=== PATIENT | male | born 1950 | race Caucasian/White ===

== ENCOUNTER 2022-01-05 17:38 | Emergency (ER) | payer MEDICARE, MEDICAID ==
[~2022-01-05] VITALS: Ht 167.6 cm; Wt 65.9 kg
[2022-01-05 17:42] VITALS: BP 128/81
[2022-01-05 17:56] LABS: CLARITY,URINE CLOUDY (Clear); COLOR,URINE YELLOW (Yellow); GLUCOSE, URINE NEGATIVE (Neg); KETONES,URINE 15 mg/dl (Neg); LEUKOCYTE ESTERASE ,URINE SMALL (Neg); NITRITES, URINE NEGATIVE (Neg); OCCULT BLOOD,URINE TRACE-INTACT (Neg); PH,URINE 8.5 (4.8-8.0); PROTEIN,URINE 100 mg/dl (Neg); UROBILINOGEN,URINE 0.2 E.U/dL (0.2-1.0)
[2022-01-05 18:06] LABS: UA COLLECTION TYPE FOLEY CATH
[2022-01-05 18:08] LABS: WBC,URINE 50-100 /HPF (0-4)
[2022-01-05 18:09] LABS: AMORPHOUS PHOSPHATES 3+; BACTERIA,URINE 2+ /HPF (Neg); SQUAMOUS EPITHELIAL CELL,UR FEW /LPF (FEW); WBC CLUMPS,URINE MODERATE /HPF (NEGATIVE)
== END 2022-01-05 20:26 | disposition home or self-care (01) ==
LOC: ER 17:38
DX: T83.031A Leakage of indwelling urethral catheter, initial encounter (principal); Y84.6 Urinary catheterization as the cause of abnormal reaction of the patient, or of later complication, without mention of misadventure at the time of the procedure
CPT/HCPCS: 81001; 87077; 87088; 87186; 99283

== ENCOUNTER 2022-01-06 07:53 | Emergency (ER) | payer MEDICARE, MEDICAID ==
[~2022-01-06] VITALS: Ht 167.6 cm; Wt 64.0 kg
[2022-01-06 08:04] VITALS: BP 133/88
[2022-01-07] MEDS ORDERED: NO HOME MEDS (03:46)
== END 2022-01-06 08:41 | disposition home or self-care (01) ==
LOC: ER 07:54
DX: T85.9XXA Unspecified complication of internal prosthetic device, implant and graft, initial encounter (principal); Z59.00 Homelessness unspecified; Z79.899 Other long term (current) drug therapy
CPT/HCPCS: 99281

== ENCOUNTER 2022-01-07 00:13 | Inpatient (IN) | payer MEDICARE, MEDICAID ==
[~2022-01-07] VITALS: Ht 167.6 cm; Wt 63.6 kg
[2022-01-07] MEDS ORDERED: LIDOcaine 2% 10ml TOPICAL JELLY (Urojet) TP ONE (00:20)
[2022-01-07 02:01] LABS: BASOPHILS % (AUTO) 0.7 % (0-1); EOSINOPHILS # (AUTO) 0.1 X10'3 (0-0.9); EOSINOPHILS % (AUTO) 1.3 % (0-6); HEMATOCRIT 37.1 % (42.0-52.0); HEMOGLOBIN 12.5 g/dl (14.0-17.9); LYMPHOCYTES # (AUTO) 1.5 X10'3 (1.1-4.8); LYMPHOCYTES % (AUTO) 20.6 % (21-51); MEAN CORPUSCULAR HEMOGLOBIN 30.6 PG (27.0-31.0); MEAN CORPUSCULAR HGB CONC 33.5 g/dL (33.0-36.5); MEAN CORPUSCULAR VOLUME 91.1 FL (78-98); MEAN PLATELET VOLUME 7.8 FL (7.4-10.4); MONOCYTES # (AUTO) 1.1 X10'3 (0-0.9); MONOCYTES % (AUTO) 14.9 % (2-12); NEUTROPHILS # (AUTO) 4.4 X10'3 (1.8-7.7); NEUTROPHILS % (AUTO) 62.5 % (42-75); PLATELET COUNT 327 X10'3 (140-440); RED BLOOD COUNT 4.08 X10'6 (4.70-6.10); RED CELL DISTRIBUTION WIDTH 14.9 % (11.5-14.5); WHITE BLOOD COUNT 7.1 X10'3 (4.5-11.0)
[2022-01-07 02:15] LABS: ALANINE AMINOTRANSFERASE 14 U/L (12-78); ALBUMIN 3.3 G/DL (3.4-5.0); ALKALINE PHOSPHATASE 67 IU/L (46-116); ANION GAP 13 (8-16); ASPARTATE AMINO TRANSFERASE 21 U/L (10-37); BILIRUBIN,TOTAL 0.5 MG/DL (0.1-1.0); BLOOD UREA NITROGEN 23 MG/DL (7-18); BUN/CREATININE RATIO 18.1 (5.4-32.0); CALCIUM 8.8 MG/DL (8.5-10.1); CHLORIDE 109 MMOL/L (99-107); CREATININE 1.27 MG/DL (0.60-1.10); GLUCOSE 111 MG/DL (70-104); POTASSIUM 3.5 MMOL/L (3.5-5.1); SODIUM 144 MMOL/L (135-145); TOTAL CARBON DIOXIDE 22.1 MMOL/L (24-32); TOTAL PROTEIN 6.7 G/DL (6.4-8.2); eGFR 56 ML/MIN
[2022-01-07 02:29] LABS: ETHANOL < 0.010 GM/DL (0.0-0.010)
[2022-01-07 02:55] LABS: URINE AMPHETAMINE SCREEN NEGATIVE (Neg); URINE BARBITUATE SCREEN NEGATIVE (Neg); URINE BENZODIAZEPINES SCREEN NEGATIVE (Neg); URINE CANNABINOID SCREEN NEGATIVE (Neg); URINE COCAINE SCREEN NEGATIVE (Neg); URINE METHADONE SCREEN NEGATIVE (Neg); URINE OPIATE SCREEN NEGATIVE (Neg); URINE PHENCYCLIDINE SCREEN NEGATIVE (Neg)
[2022-01-07 03:09] LABS: CLARITY,URINE CLOUDY (Clear); COLOR,URINE YELLOW (Yellow); GLUCOSE, URINE NEGATIVE (Neg); KETONES,URINE 40 mg/dl (Neg); LEUKOCYTE ESTERASE ,URINE MODERATE (Neg); NITRITES, URINE NEGATIVE (Neg); OCCULT BLOOD,URINE TRACE-INTACT (Neg); PROTEIN,URINE 100 mg/dl (Neg)
[2022-01-07 03:26] LABS: WBC,URINE TNTC /HPF (0-4)
[2022-01-07 03:27] LABS: BACTERIA,URINE 4+ /HPF (Neg)
[2022-01-07 03:28] LABS: AMORPHOUS PHOSPHATES 4+; SQUAMOUS EPITHELIAL CELL,UR FEW /LPF (FEW); WBC CLUMPS,URINE FEW /HPF (NEGATIVE)
[2022-01-07 03:29] LABS: TRIPLE PHOSPHATE CRYST 4+ /HPF (NEGATIVE)
[2022-01-07 03:36] LABS: UA COLLECTION TYPE CLN CATCH MIDSTREAM
[2022-01-07] MEDS ORDERED: cefTRIAXone 1g/NS 100ml IVPB 100 ML IV ONE (03:40)
[2022-01-07] MEDS ORDERED: NO HOME MEDS (03:46)
[2022-01-07] MEDS ORDERED: magnesium Cl slow-release 64mg tablet PO PRN (03:55)
[2022-01-07] MEDS ORDERED: ondansetron/PF 4mg/2ml inj IV PRN (03:55)
[2022-01-07] MEDS ORDERED: magnesium 4gm in 100ml NS 100 ML IV PRN (03:55)
[2022-01-07] MEDS ORDERED: acetaminophen 325mg tablet PO PRN (03:55)
[2022-01-07] MEDS ORDERED: magnesium 2GM in 50ml NS 50 ML IV PRN (03:55)
[2022-01-07] MEDS ORDERED: POTASSIUM BICARB 20meq eff tab 20 MEQ TABLET.EFF PO PRN (03:55)
[2022-01-07] MEDS ORDERED: mag hydrox/Alum hydrox/simeth 30ml oral suspension PO PRN (03:55)
[2022-01-07] MEDS ORDERED: HYDROcodone/acetaminophen 5mg/325mg tablet PO PRN (03:55)
[2022-01-07] MEDS ORDERED: magnesium hydroxide 30ml (MOM) UD suspension PO PRN (03:55)
[2022-01-07] MEDS ORDERED: potassium CL 10mEq/100ml bag 100 ML IV PRN (03:55)
[2022-01-07 04:10] LABS: MAGNESIUM 1.7 MG/DL (1.5-2.4)
[2022-01-07 04:15] LABS: HEMOGLOBIN A1C 5.6 % (4.5-6.2)
[2022-01-07] MEDS: normal saline 1000ml 1,000 ML IV SCH ×2 (05:39→15:57)
[2022-01-07] MEDS: K and/or MAG REPLACEMENT MC SCH ×2 (08:00→20:00)
[2022-01-07] MEDS: docusate sod 100mg capsule PO SCH ×2 (08:31→19:44)
[2022-01-07] MEDS: enoxaparin 40mg/0.4ml syringe SUBCUT SCH (08:32)
--- NOTE | 2022-01-07 11:54 | NUR ---
pt ex at bedside. #[phone] jeff. Pt social service [phone] given her number
--- NOTE | 2022-01-07 12:42 | NUR ---
EX- AT BEDSIDE, FABRICATION WELDER AT BEDSIDE TO EVALUATE PT, PT'S SISTER WILL BE COMING INT TO TOWN TO SET UP CARE FOR PT OUTSIDE OF HOSPITAL.
[2022-01-07 15:35] VITALS: BP 137/75
[2022-01-07 18:00] VITALS: BP 135/71
--- NOTE | 2022-01-07 18:29 | NUR ---
Problems reprioritized. Patient report given, questions answered & plan of care reviewed with LUCY AYALA RN.
--- NOTE | 2022-01-07 18:30 | NUR ---
Patient in room ORTHO 4021. I have received report from PAOLA SCHMID and had the opportunity to ask questions and assume patient care.
[2022-01-07 22:00] VITALS: BP 117/53
[2022-01-08] MEDS: normal saline 1000ml 1,000 ML IV SCH ×2 (00:50→11:10)
--- NOTE | 2022-01-08 06:18 | NUR ---
Problems reprioritized. Patient report given, questions answered & plan of care reviewed with TALITA SCHMID.
[2022-01-08 06:30] VITALS: BP 165/91
[2022-01-08] MEDS: docusate sod 100mg capsule PO SCH ×3 (06:48→20:00)
[2022-01-08] MEDS: HYDROcodone/acetaminophen 10/325mg tab PO PRN (06:49)
[2022-01-08] MEDS: enoxaparin 40mg/0.4ml syringe SUBCUT SCH (06:55)
[2022-01-08 07:37] LABS: BASOPHILS # (AUTO) 0.1 X10'3 (0-0.2); BASOPHILS % (AUTO) 1.2 % (0-1); EOSINOPHILS # (AUTO) 0.2 X10'3 (0-0.9); EOSINOPHILS % (AUTO) 4.3 % (0-6); HEMATOCRIT 34.5 % (42.0-52.0); HEMOGLOBIN 11.6 g/dl (14.0-17.9); LYMPHOCYTES # (AUTO) 1.5 X10'3 (1.1-4.8); LYMPHOCYTES % (AUTO) 28.4 % (21-51); MEAN CORPUSCULAR HEMOGLOBIN 30.4 PG (27.0-31.0); MEAN CORPUSCULAR HGB CONC 33.5 g/dL (33.0-36.5); MEAN CORPUSCULAR VOLUME 90.9 FL (78-98); MEAN PLATELET VOLUME 7.6 FL (7.4-10.4); MONOCYTES # (AUTO) 0.7 X10'3 (0-0.9); MONOCYTES % (AUTO) 12.9 % (2-12); NEUTROPHILS # (AUTO) 2.7 X10'3 (1.8-7.7); NEUTROPHILS % (AUTO) 53.2 % (42-75); PLATELET COUNT 263 X10'3 (140-440); RED CELL DISTRIBUTION WIDTH 14.8 % (11.5-14.5); WHITE BLOOD COUNT 5.1 X10'3 (4.5-11.0)
[2022-01-08] MEDS ORDERED: cefTRIAXone 1g/NS 100ml IVPB 100 ML IV SCH (08:00)
[2022-01-08] MEDS: K and/or MAG REPLACEMENT MC SCH ×2 (08:00→20:00)
[2022-01-08 08:08] LABS: ALANINE AMINOTRANSFERASE 15 U/L (12-78); ALBUMIN 2.7 G/DL (3.4-5.0); ALBUMIN/GLOBULIN RATIO 0.9 (1.1-1.5); ALKALINE PHOSPHATASE 55 IU/L (46-116); ANION GAP 10 (8-16); ASPARTATE AMINO TRANSFERASE 19 U/L (10-37); BILIRUBIN,TOTAL 0.4 MG/DL (0.1-1.0); BLOOD UREA NITROGEN 22 MG/DL (7-18); BUN/CREATININE RATIO 19.5 (5.4-32.0); CALCIUM 7.5 MG/DL (8.5-10.1); CHLORIDE 114 MMOL/L (99-107); CHOLESTEROL 174 MG/DL (0-200); CREATININE 1.13 MG/DL (0.60-1.10); FERRITIN 185 NG/ML (26-388); GLUCOSE 92 MG/DL (70-104); HDL CHOLESTEROL 43 MG/DL (35-60); LDL CHOLESTEROL 94 MG/DL (50-100); POTASSIUM 3.8 MMOL/L (3.5-5.1); SODIUM 148 MMOL/L (135-145); TOTAL CARBON DIOXIDE 23.8 MMOL/L (24-32); TOTAL PROTEIN 5.7 G/DL (6.4-8.2); TRIGLYCERIDES 155 MG/DL (20-135); eGFR 64 ML/MIN
[2022-01-08] MEDS ORDERED: OLANZapine **IM** 10 mg inj. IM ONE ×2 (08:10→14:00)
[2022-01-08] MEDS ORDERED: LORazepam 1 MG tablet PO PRN (08:10)
[2022-01-08] MEDS ORDERED: LORazepam 2 mg/ml vial IV PRN (08:10)
[2022-01-08 08:16] LABS: % IRON SATURATION 44 % (11-46); IRON 85 UG/DL (53-167); TOTAL IRON BINDING CAPACITY 195 UG/DL (259-388)
[2022-01-08] MEDS ORDERED: TRAM50TA2 PO (08:28)
[2022-01-08] MEDS ORDERED: LOSA25TA96 PO (08:28)
[2022-01-08] MEDS ORDERED: CHOL400T57 PO (08:28)
[2022-01-08] MEDS ORDERED: DIVA-81 PO (08:28)
[2022-01-08] MEDS ORDERED: FLO0.4C PO (08:29)
[2022-01-08] MEDS ORDERED: FINA5TAB11 PO (08:29)
[2022-01-08 10:00] VITALS: BP 155/82
[2022-01-08 14:44] VITALS: BP 155/82
--- NOTE | 2022-01-08 14:55 | NUR ---
Patient very anxious pacing room, dragging watkins catheter around, attempting to come out of room. now at bedside patient has settled into bed comfortably with her there.
[2022-01-08] MEDS ORDERED: traMADol 50MG tablet PO PRN (15:35)
[2022-01-08 15:50] VITALS: BP 165/83
[2022-01-08] MEDS ORDERED: LORazepam 2 mg/ml vial IM PRN (17:00)
[2022-01-08] MEDS: levoFLOXACIN 500mg tablet PO SCH (17:07)
--- NOTE | 2022-01-08 17:20 | NUR ---
PAGER ID: [phone] MESSAGE: [id number] Megan Obrien: Can Ativan be IM instead of IV? he is being combative and wont take PO yon [id number]
--- NOTE | 2022-01-08 17:39 | NUR ---
Patient very agitated and unstable on his feet. Attempted to get him back to bed as he was hitting and screaming at staff. Security called, and assisted with getting him back to bed. Spoke to MD and received orders
--- NOTE | 2022-01-08 18:16 | NUR ---
Problems reprioritized. Patient report given, questions answered & plan of care reviewed with SHARMAINE Biggs.
--- NOTE | 2022-01-08 18:25 | NUR ---
Problems reprioritized. Patient report given, questions answered & plan of care reviewed with SHARMAINE Biggs.
--- NOTE | 2022-01-08 18:30 | NUR ---
Patient in room ORTHO 4021. I have received report from TALITA SCHMID and had the opportunity to ask questions and assume patient care.
[2022-01-08] MEDS: divalproex sod 250mg ER (24-hour) tablet PO SCH ×2 (19:52→20:00)
--- NOTE | 2022-01-08 21:00 | NUR ---
PATIENT REFUSED TO TAKE HIS HS MEDICINES EVEN AFTER SEVERAL ATTEMPTS WITH EXPLANATIONS, PATIENT CONFUSED, RESTLESS, AGITATED, COMBATIVE AND IMPULSIVE.
[2022-01-08 22:00] VITALS: BP 138/93
[2022-01-09 02:00] VITALS: BP 120/65
[2022-01-09 06:12] LABS: BASOPHILS # (AUTO) 0.1 X10'3 (0-0.2); BASOPHILS % (AUTO) 1.3 % (0-1); EOSINOPHILS # (AUTO) 0.3 X10'3 (0-0.9); EOSINOPHILS % (AUTO) 4.7 % (0-6); HEMATOCRIT 37.9 % (42.0-52.0); HEMOGLOBIN 12.7 g/dl (14.0-17.9); LYMPHOCYTES # (AUTO) 1.6 X10'3 (1.1-4.8); LYMPHOCYTES % (AUTO) 24.2 % (21-51); MEAN CORPUSCULAR HEMOGLOBIN 30.7 PG (27.0-31.0); MEAN CORPUSCULAR HGB CONC 33.6 g/dL (33.0-36.5); MEAN CORPUSCULAR VOLUME 91.5 FL (78-98); MEAN PLATELET VOLUME 7.9 FL (7.4-10.4); MONOCYTES # (AUTO) 0.9 X10'3 (0-0.9); NEUTROPHILS # (AUTO) 3.7 X10'3 (1.8-7.7); NEUTROPHILS % (AUTO) 55.8 % (42-75); PLATELET COUNT 291 X10'3 (140-440); RED BLOOD COUNT 4.15 X10'6 (4.70-6.10); RED CELL DISTRIBUTION WIDTH 14.8 % (11.5-14.5); WHITE BLOOD COUNT 6.6 X10'3 (4.5-11.0)
--- NOTE | 2022-01-09 06:27 | NUR ---
Problems reprioritized. Patient report given, questions answered & plan of care reviewed with LACEY RN.
[2022-01-09 06:33] LABS: ALANINE AMINOTRANSFERASE 20 U/L (12-78); ALKALINE PHOSPHATASE 62 IU/L (46-116); ANION GAP 8 (8-16); ASPARTATE AMINO TRANSFERASE 29 U/L (10-37); BILIRUBIN,TOTAL 0.4 MG/DL (0.1-1.0); BLOOD UREA NITROGEN 13 MG/DL (7-18); BUN/CREATININE RATIO 12.9 (5.4-32.0); CALCIUM 8.2 MG/DL (8.5-10.1); CHLORIDE 114 MMOL/L (99-107); CREATININE 1.01 MG/DL (0.60-1.10); GLUCOSE 83 MG/DL (70-104); SODIUM 148 MMOL/L (135-145); TOTAL CARBON DIOXIDE 25.9 MMOL/L (24-32); TOTAL PROTEIN 6.1 G/DL (6.4-8.2); eGFR 73 ML/MIN
[2022-01-09 06:42] VITALS: BP 143/95
--- NOTE | 2022-01-09 06:51 | NUR ---
Patient in room ORTHO 4021. I have received report from Kalyan SCHMID and had the opportunity to ask questions and assume patient care.
--- NOTE | 2022-01-09 07:05 | NUR ---
PAGER ID: [phone] MESSAGE: Parviz Boyd [phone] re: Megan Obrien [id number] Patient has a critical potassium of 3.0 K+ thanks Parviz.
[2022-01-09] MEDS: K and/or MAG REPLACEMENT MC SCH ×2 (08:00→20:00)
[2022-01-09] MEDS: losartan 50mg tablet PO SCH (09:08)
[2022-01-09] MEDS: docusate sod 100mg capsule PO SCH ×2 (09:09→20:00)
[2022-01-09] MEDS: enoxaparin 40mg/0.4ml syringe SUBCUT SCH (09:09)
[2022-01-09] MEDS: POTASSIUM BICARB 20meq eff tab 20 MEQ TABLET.EFF PO PRN ×3 (09:11→17:35)
[2022-01-09] MEDS: finasteride 5mg tablet PO SCH (09:11)
[2022-01-09] MEDS: cholecalciferol (vitamin D3) 400 unit (10mcg) tablet PO SCH (09:13)
[2022-01-09] MEDS: OLANZAPINE 5 MG TABLET PO SCH (09:14)
[2022-01-09] MEDS: divalproex sod 250mg ER (24-hour) tablet PO SCH ×2 (09:14→20:11)
[2022-01-09] MEDS: tamsulosin 0.4mg capsule PO SCH (09:15)
[2022-01-09 10:35] VITALS: BP 133/76
[2022-01-09] MEDS: levoFLOXACIN 500mg tablet PO SCH (11:51)
[2022-01-09 14:00] VITALS: BP 98/68
--- NOTE | 2022-01-09 16:22 | NUR ---
Pt has orders to be discharged. Called his family member Juancarlos Whitley several times, No response phone goes voice mail.
--- NOTE | 2022-01-09 16:28 | NUR ---
Attempted to call patient family at this time to get in touch with patients sister. Was unable to get number from listed family so far but will call again. Addendum: 01/09/22 at 1634 by Neal Saunders RN Patient family returned call. Notified me that plans have changed and that plan tickets and hotel reservations are being made so that patient can travel to [place] to live with sister.
[2022-01-09] MEDS: LORazepam 1 MG tablet PO PRN ×2 (16:53→22:52)
[2022-01-09] MEDS: nicotine 14mg patch - 24hr TD SCH (17:04)
--- NOTE | 2022-01-09 17:45 | NUR ---
I have reviewed and all interventions, assessments performed and documented by Rogelio PEREA.
[2022-01-09 18:00] VITALS: BP 105/61
--- NOTE | 2022-01-09 18:30 | NUR ---
Problems reprioritized. Patient report given, questions answered & plan of care reviewed with TATIANNA SCHMID.
--- NOTE | 2022-01-09 18:48 | NUR ---
Patient in room ORTHO 4021. I have received report from LACEY SCHMID and had the opportunity to ask questions and assume patient care.
[2022-01-09] MEDS: HYDROcodone/acetaminophen 10/325mg tab PO PRN (21:49)
[2022-01-09 22:00] VITALS: BP 107/68
[2022-01-10] MEDS: LORazepam 1 MG tablet PO PRN (05:29)
[2022-01-10 05:32] LABS: BASOPHILS # (AUTO) 0.1 X10'3 (0-0.2); EOSINOPHILS # (AUTO) 0.2 X10'3 (0-0.9); EOSINOPHILS % (AUTO) 2.9 % (0-6); HEMATOCRIT 40.2 % (42.0-52.0); HEMOGLOBIN 13.4 g/dl (14.0-17.9); LYMPHOCYTES # (AUTO) 2.7 X10'3 (1.1-4.8); LYMPHOCYTES % (AUTO) 38.8 % (21-51); MEAN CORPUSCULAR HEMOGLOBIN 30.4 PG (27.0-31.0); MEAN CORPUSCULAR HGB CONC 33.4 g/dL (33.0-36.5); MEAN PLATELET VOLUME 7.9 FL (7.4-10.4); MONOCYTES # (AUTO) 0.9 X10'3 (0-0.9); MONOCYTES % (AUTO) 12.2 % (2-12); NEUTROPHILS # (AUTO) 3.2 X10'3 (1.8-7.7); NEUTROPHILS % (AUTO) 45.1 % (42-75); PLATELET COUNT 339 X10'3 (140-440); RED BLOOD COUNT 4.42 X10'6 (4.70-6.10)
[2022-01-10 05:50] LABS: ALANINE AMINOTRANSFERASE 21 U/L (12-78); ALBUMIN 3.1 G/DL (3.4-5.0); ALBUMIN/GLOBULIN RATIO 0.9 (1.1-1.5); ALKALINE PHOSPHATASE 66 IU/L (46-116); ANION GAP 6 (8-16); ASPARTATE AMINO TRANSFERASE 26 U/L (10-37); BILIRUBIN,TOTAL 0.3 MG/DL (0.1-1.0); BLOOD UREA NITROGEN 26 MG/DL (7-18); BUN/CREATININE RATIO 17.3 (5.4-32.0); CALCIUM 8.7 MG/DL (8.5-10.1); CHLORIDE 111 MMOL/L (99-107); GLUCOSE 118 MG/DL (70-104); POTASSIUM 4.2 MMOL/L (3.5-5.1); SODIUM 145 MMOL/L (135-145); TOTAL CARBON DIOXIDE 27.9 MMOL/L (24-32); TOTAL PROTEIN 6.7 G/DL (6.4-8.2); eGFR 46 ML/MIN
--- NOTE | 2022-01-10 06:22 | NUR ---
Problems reprioritized. Patient report given, questions answered & plan of care reviewed with LACEY RN.
--- NOTE | 2022-01-10 06:50 | NUR ---
Patient in room ORTHO 4021. I have received report from TATIANNA SCHMID and had the opportunity to ask questions and assume patient care.
[2022-01-10 07:05] VITALS: BP 144/85
[2022-01-10] MEDS: K and/or MAG REPLACEMENT MC SCH ×2 (08:00→20:00)
[2022-01-10] MEDS: losartan 50mg tablet PO SCH (08:16)
[2022-01-10] MEDS: cholecalciferol (vitamin D3) 400 unit (10mcg) tablet PO SCH (08:16)
[2022-01-10] MEDS: docusate sod 100mg capsule PO SCH ×2 (08:16→21:30)
[2022-01-10] MEDS: tamsulosin 0.4mg capsule PO SCH (08:16)
[2022-01-10] MEDS: OLANZAPINE 5 MG TABLET PO SCH (08:17)
[2022-01-10] MEDS: finasteride 5mg tablet PO SCH (08:17)
[2022-01-10] MEDS: divalproex sod 250mg ER (24-hour) tablet PO SCH ×2 (08:18→21:30)
[2022-01-10] MEDS: nicotine 14mg patch - 24hr TD SCH (08:20)
[2022-01-10] MEDS: enoxaparin 40mg/0.4ml syringe SUBCUT SCH (08:20)
[2022-01-10 10:43] VITALS: BP 145/104
[2022-01-10] MEDS: levoFLOXACIN 500mg tablet PO SCH ×3 (11:00→11:23)
--- NOTE | 2022-01-10 13:00 | NUR ---
PAGER ID: [phone] MESSAGE: LACEY LEONARD [phone] MILDRED IS RAMPING UP, SECURITY IS HEAR HE IS REFUSING MEDICATION, IS THERE AN IM MEDICATION YOU WANTED TO ADD ON. THANKS LACEY.
[2022-01-10] MEDS ORDERED: OLANZapine **IM** 10 mg inj. IM PRN (13:05)
[2022-01-10 14:00] VITALS: BP 155/88
--- NOTE | 2022-01-10 18:32 | NUR ---
Problems reprioritized. Patient report given, questions answered & plan of care reviewed with Cheyanne SCHMID.
[2022-01-10 21:38] VITALS: BP 116/70
[2022-01-11 06:00] VITALS: BP 95/66
[2022-01-11 06:01] LABS: BASOPHILS # (AUTO) 0.1 X10'3 (0-0.2); BASOPHILS % (AUTO) 1.4 % (0-1); EOSINOPHILS # (AUTO) 0.2 X10'3 (0-0.9); EOSINOPHILS % (AUTO) 4.1 % (0-6); HEMATOCRIT 38.7 % (42.0-52.0); HEMOGLOBIN 12.7 g/dl (14.0-17.9); LYMPHOCYTES # (AUTO) 2.1 X10'3 (1.1-4.8); LYMPHOCYTES % (AUTO) 36.2 % (21-51); MEAN CORPUSCULAR HEMOGLOBIN 30.2 PG (27.0-31.0); MEAN CORPUSCULAR HGB CONC 32.9 g/dL (33.0-36.5); MEAN CORPUSCULAR VOLUME 91.8 FL (78-98); MEAN PLATELET VOLUME 7.6 FL (7.4-10.4); MONOCYTES # (AUTO) 0.7 X10'3 (0-0.9); MONOCYTES % (AUTO) 11.1 % (2-12); NEUTROPHILS # (AUTO) 2.8 X10'3 (1.8-7.7); NEUTROPHILS % (AUTO) 47.2 % (42-75); PLATELET COUNT 294 X10'3 (140-440); RED BLOOD COUNT 4.21 X10'6 (4.70-6.10); RED CELL DISTRIBUTION WIDTH 15.2 % (11.5-14.5); WHITE BLOOD COUNT 5.9 X10'3 (4.5-11.0)
--- NOTE | 2022-01-11 06:09 | NUR ---
Problems reprioritized. Patient report given, questions answered & plan of care reviewed with nicholas Ellis.
[2022-01-11 06:18] LABS: ALANINE AMINOTRANSFERASE 18 U/L (12-78); ALBUMIN 2.8 G/DL (3.4-5.0); ALBUMIN/GLOBULIN RATIO 0.8 (1.1-1.5); ALKALINE PHOSPHATASE 59 IU/L (46-116); ANION GAP 7 (8-16); ASPARTATE AMINO TRANSFERASE 19 U/L (10-37); BILIRUBIN,TOTAL 0.3 MG/DL (0.1-1.0); BLOOD UREA NITROGEN 23 MG/DL (7-18); CALCIUM 8.5 MG/DL (8.5-10.1); CHLORIDE 114 MMOL/L (99-107); CREATININE 1.28 MG/DL (0.60-1.10); GLUCOSE 100 MG/DL (70-104); SODIUM 147 MMOL/L (135-145); TOTAL CARBON DIOXIDE 26.3 MMOL/L (24-32); TOTAL PROTEIN 6.1 G/DL (6.4-8.2); eGFR 55 ML/MIN
[2022-01-11] MEDS: OLANZAPINE 5 MG TABLET PO SCH ×2 (07:38→07:50)
[2022-01-11] MEDS: tamsulosin 0.4mg capsule PO SCH ×2 (07:38→07:50)
[2022-01-11] MEDS: losartan 50mg tablet PO SCH ×2 (07:38→07:49)
[2022-01-11] MEDS: divalproex sod 250mg ER (24-hour) tablet PO SCH ×2 (07:39→07:50)
[2022-01-11] MEDS: finasteride 5mg tablet PO SCH ×2 (07:39→07:50)
[2022-01-11] MEDS: K and/or MAG REPLACEMENT MC SCH (07:39)
[2022-01-11] MEDS: docusate sod 100mg capsule PO SCH (07:39)
[2022-01-11] MEDS: nicotine 14mg patch - 24hr TD SCH (07:40)
[2022-01-11] MEDS: enoxaparin 40mg/0.4ml syringe SUBCUT SCH (07:47)
[2022-01-11] MEDS: cholecalciferol (vitamin D3) 400 unit (10mcg) tablet PO SCH (07:47)
--- NOTE | 2022-01-11 09:35 | NUR ---
Initial; Pt admitted w/ UTI, metabolic encephalopathy, and OPAL per EMR. Pt noted to be aggressive at times and A&O x 2. Currently on Regular diet though appears to have refused about half of the meals while consuming ~75% of others per documentation; this could be do to his AMS. Will trial Smoothies/shakes TID to see if pt is accepting, then may consider ONS. If pt continues w/ refusing meals that may recommend NGTF if within POC. LBM 5/7 receiving routine colace. Will continue to monitor. Recs: 1. Continue Regular diet as tolerated 2. Smoothies BIDBD, Shake WL 3. If pt accepting of Smoothies/shakes; consider ONS if PO reamins low 4. Bowel care per rx 5. Weekly wts Addendum: 01/11/22 at [address] Amended: Links added.
[2022-01-11 10:00] VITALS: BP 113/78
[2022-01-11] MEDS: levoFLOXACIN 500mg tablet PO SCH (10:59)
[2022-01-11] MEDS ORDERED: clonazePAM 0.5mg tablet PO SCH (11:45)
[2022-01-11] MEDS: LORazepam 1 MG tablet PO PRN (11:52)
--- NOTE | 2022-01-11 12:31 | NUR ---
Madeleine ObrienJordan [phone] called to say she didn't think her mother Yina would be able to get a home for pt and is asking to speak with SS or CM regarding placement for pt. CM paged.
--- NOTE | 2022-01-11 15:49 | NUR ---
PAGER ID: [phone] MESSAGE: Giovani Obrien [phone] Family called and they will be here at 1800 to take pt to [place]. Can you write discharge orders if you are ok with this? And if so, is he leaving with f/c? Was told it was chronic. Rhonda [phone]
[2022-01-11] MEDS ORDERED: ATI1T PO (15:58)
[2022-01-11] MEDS ORDERED: CLON0.5T4 PO (15:58)
[2022-01-11] MEDS ORDERED: LOSA25TA96 PO (15:58)
[2022-01-11] MEDS ORDERED: OLAN5TAB75 PO (15:58)
[2022-01-11] MEDS ORDERED: DIVA-81 PO (15:58)
[2022-01-11] MEDS ORDERED: FLO0.4C PO (15:58)
[2022-01-11] MEDS ORDERED: LEVO500T90 PO (15:58)
--- NOTE | 2022-01-11 16:04 | NUR ---
Per hospitalist ok to leave f/c in for discharge.
--- NOTE | 2022-01-11 16:07 | NUR ---
Spoke with Yina Montenegro [phone]. She is aware medications will be at [facility]. Niece, Daniela is supposed to p/u pt at 1830
--- NOTE | 2022-01-11 16:12 | NUR ---
Yina Montenegro called back. Daniela Oquendo's phone number is
--- NOTE | 2022-01-11 17:58 | NUR ---
Written prescription for narcotics obtained from hospitalist and placed in discharge packet for pt.
[2022-01-11 18:00] VITALS: BP 102/75
--- NOTE | 2022-01-11 18:08 | NUR ---
Gave report to Cheyanne SCHMID.
--- NOTE | 2022-01-11 19:21 | NUR ---
pt is anxiously waiting. i called joceline but no answer.
[2022-01-11] MEDS ORDERED: OLANZAPINE 5 MG TABLET PO SCH (20:00)
--- NOTE | 2022-01-11 20:00 | NUR ---
i called jeff and left a message that Daniela who was supposed to pick him up hasn't showed up yet. and asked for update.
--- NOTE | 2022-01-11 20:25 | NUR ---
pt's family Daniela was at the door ready to flower buncher or picker pt. charge nurse wheeled him to meet Daniela downstairs and all questioned answered by charge nurse. pt will flower buncher or picker separate perscription from pharmacy. pt entered to private vehicle with all the belongings including his own wheelchair.
== END 2022-01-11 20:30 | disposition home or self-care (01) | DRG 698 ==
LOC: ER 00:14 → ED HOLD 03:55 → ORTHO 4S 15:28
PROVIDERS: ADMIT Internal Medicine; ATTEND Family Medicine
DX: T83.511A Infection and inflammatory reaction due to indwelling urethral catheter, initial encounter (principal); G93.41 Metabolic encephalopathy; N17.0 Acute kidney failure with tubular necrosis; F02.81 Dementia in other diseases classified elsewhere, unspecified severity, with behavioral disturbance; N17.9 Acute kidney failure, unspecified; E87.0 Hyperosmolality and hypernatremia; N13.8 Other obstructive and reflux uropathy; N39.0 Urinary tract infection, site not specified; E86.0 Dehydration; R33.9 Retention of urine, unspecified; D64.9 Anemia, unspecified; B96.4 Proteus (mirabilis) (morganii) as the cause of diseases classified elsewhere; N40.1 Benign prostatic hyperplasia with lower urinary tract symptoms; D50.9 Iron deficiency anemia, unspecified; E87.6 Hypokalemia; G30.9 Alzheimer's disease, unspecified; I10 Essential (primary) hypertension; Z91.83 Wandering in diseases classified elsewhere; Z99.3 Dependence on wheelchair; Z59.00 Homelessness unspecified
CPT/HCPCS: 36415; 70450; 71045; 80053; 80061; 80305; 80320; 81001; 82140; 82607; 82728; 83036; 83540; 83550; 83735; 84443; 85025; 87077; 87081; 87088; 87186; 99281; 99285; G0378; J0696; J1650; J2060; J3490; J7030